=== PATIENT | female | born 1970 | race Caucasian/White ===

== ENCOUNTER 2020-05-10 11:34 | Outpatient (CLI) | payer OTHER, SELFPAY | END 2020-05-10 11:35 | disposition home or self-care (01) | LOC: ANHLAB 11:36 | PROVIDERS: PCP Family Medicine; Visit Provider Internal Medicine Critical Care Medicine | DX: G47.00 Insomnia, unspecified (principal) | CPT/HCPCS: 36415; 82728 ==

== ENCOUNTER 2020-05-16 00:35 | Outpatient (CLI) | payer OTHER, SELFPAY ==
[2020-05-16 17:34] LABS: SARS-CoV-2 RNA PCR Negative
== END 2020-05-16 00:36 | disposition home or self-care (01) ==
LOC: ANHCOVIDDT 00:36
PROVIDERS: PCP Family Medicine; Visit Provider Internal Medicine Critical Care Medicine
DX: Z20.822 Contact with and (suspected) exposure to COVID-19 (principal)
CPT/HCPCS: C9803; U0003; U0005

== ENCOUNTER 2020-05-18 08:40 | Outpatient (CLI) | payer OTHER, SELFPAY ==
--- NOTE | 2020-06-10 17:37 | WPDSLEEPSTUD ---
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 At this point, she started having difficulty sleeping when she got home from her overnight babysitter. If she had to work the following night, she had significant anxiety which made it even more difficult for her to sleep during the day. She is now using Ramelteon 8 mg to initiate sleep; has tried diphenhydramine and Unisom; she is on olanzapine / Zyprexa which is helping calm her down but this is not helping to get her to sleep. She is tired in the day from lack of good sleep. She quit working in March. She goes to bed at 9 p.m., falls asleep between 10 and 11 p.m. She only sleeps a few hours before waking. She estimates getting 3-4 hours of sleep, with frequent episodes of waking. Her legs do not bother her at night. She has B6 deficiency and takes replacement. She does not have typical sleep apnea symptoms such as snoring or gasping for breath at night. She has a dry mouth which has been long standing which she attributes to her medications. She currently does not drink any caffeine. She drank 2 large Mountain Dew sodas overnight when she was still working nights. She does not snore. She does not wake feeling refreshed. She is tired in the day, does not nap. She has occasional dreams, rare nightmares. She has hot flashes at night and in the day. These occur a few times daily. She drinks alcohol rarely. At most, she has nocturia once at night. She does not have inappropriate episodes of sleep, sleep paralysis, vivid dreams on falling asleep or waking, does not have muscle weakness with strong emotion. She does not have dreams frequently. Her sleep was normal before 2 years ago. [facility] Past Medical History Medical History (Updated 06/10/20 @ 18:48 by Liz Terry MD) Abnormal uterine bleeding Anxiety Back pain BMI 26.0-26.9,adult Depression Tobacco abuse Surgical History Surgical History (Updated 05/13/20 @ 14:30 by Liz Terry MD) History of abdominoplasty History of back surgery Hx of appendectomy Hx of cholecystectomy Hx of tonsillectomy Hx of tubal ligation Family History Family History Grandparent Family history of lymphoma Social History Social History Smoking status: Current every day smoker Tobacco type: cigarettes Second hand tobacco smoke exposure: No Alcohol intake: current Drinks per week: 1 Substance use: never Gender identity (if verbalized by the patient): Female Spiritual care concerns: No Agree to blood products: Yes Medications Home Medications Medication Instructions Recorded Confirmed Type olanzapine 10 mg tablet 10 mg PO DAILY 11/12/19 03/07/20 History albuterol sulfate 90 mcg/actuation 1 inh INHALATION Q6H PRN #18 gm 04/22/20 Rx aerosol inhaler ramelteon 8 mg tablet 8 mg PO ONCE 05/10/20 History hydrocodone 10 mg-acetaminophen 1 tablet PO Q5H PRN #150 tablet 05/23/20 Rx 325 mg tablet tizanidine 4 mg tablet 4 mg PO TID PRN #90 tablet 05/30/20 Rx Sleep Procedure This test was performed using the [employer] multiple channel system including EOG, EEG, submental EMG, EKG, nasal and oral airflow using thermistors and nasal pressure sensors, chest and abdominal belts for body position data, and pulse oximetry. Video monitoring was also performed. The study was scored using CMS guidelines. Sleep Architecture The recording time is 528.9 minutes. Sleep time is 348 minutes. Sleep efficiency is
[2020-06-13 22:10] VITALS: BMI 26.4
== END 2020-05-18 08:41 | disposition home or self-care (01) ==
LOC: ANHCSM 08:42
PROVIDERS: PCP Family Medicine; Visit Provider Internal Medicine Critical Care Medicine
DX: R06.83 Snoring (principal); G47.00 Insomnia, unspecified
CPT/HCPCS: 95810

== ENCOUNTER 2022-02-16 09:54 | Outpatient (CLI) | payer BC, SELFPAY ==
[2022-02-16 10:19] LABS: Basophils Absolute Auto 0.1 K/mm3 (0.0-0.1); Eosinophils Absolute Auto 0.7 K/mm3 (0-0.3); Eosinophils Percent Auto 10.7 % (0-4.4); Hematocrit 42.1 % (37.0-47.0); Hemoglobin 14.2 g/dL (12.0-15.0); Immature Granulocyte Absolute 0.02 K/mm3 (0.00-0.031); Immature Granulocyte Percent A 0.3 % (0-0.5); Lymphocytes Absolute Auto 2.39 K/mm3 (0.9-3.2); Lymphocytes Percent Auto 39.2 % (18.3-44.2); Mean Corpuscular HGB Conc 33.7 g/dl (32-36); Mean Corpuscular Hemoglobin 32.2 pg (26-34); Mean Corpuscular Volume 95.5 fl (80-100); Mean Platelet Volume 9.8 fl (7.4-10.4); Monocytes Absolute Auto 0.3 K/mm3 (0.1-0.6); Monocytes Percent Auto 5.4 % (2.6-8.5); Neutrophils Absolute Auto 2.6 K/mm3 (1.3-6.7); Neutrophils Percent Auto 43.4 % (45.5-73.1); Platelet Count Result 239 k/mm3 (150-375); Red Blood Count 4.41 M/mm3 (4.2-5.4); Red Cell Distribution Width 13.6 % (11.5-14.5); White Blood Count 6.1 K/mm3 (4.5-10.0)
[2022-02-16 10:51] LABS: Vitamin D 25 Hydroxy 39.1 ng/mL
[2022-02-16 11:03] LABS: Iron 175 ug/dL (37-170)
[2022-02-16 11:04] LABS: Alanine Aminotransferase 25 U/L (6-35); Albumin Level 4.6 g/dL (3.5-5.1); Alkaline Phosphatase 112 U/L (38-126); Anion Gap 14 mmol/L (8-16); Aspartate Amino Transferase 26 U/L (14-36); Bilirubin,Total 0.6 mg/dL (0.2-1.3); Blood Urea Nitrogen 15 mg/dL (7-17); Calcium 9.2 mg/dL (8.4-10.2); Carbon Dioxide 26 mmol/L (22-30); Chloride 103 mmol/L (98-107); Cholesterol 222 mg/dL (0-200); Estimated Glomerular Filt Rate > 60; Glucose 136 mg/dL (65-110); HDL Direct 52 mg/dL; Sodium 143 mmol/L (137-145); Triglycerides 157 mg/dL (<150)
[2022-02-16 11:13] LABS: Percent Iron Saturation 66 % (20-50)
[2022-02-16 11:15] LABS: LDL Cholesterol Direct 134 mg/dL
[2022-02-16 11:33] LABS: Thyroid Stimulating Hormone 0.952 uIU/mL (0.465-4.680)
[2022-02-16 12:44] LABS: Vitamin B12 > 1000.0 pg/mL (239-931)
[2022-02-20 13:11] LABS: Vitamin B6 7.4 ng/mL (2.1-21.7)
[2022-02-22 04:41] LABS: Vitamin B1 11 nmol/L (8-30)
== END 2022-02-16 09:55 | disposition home or self-care (01) ==
LOC: ANHLAB 09:56
PROVIDERS: PCP Family Medicine; Visit Provider Family Medicine
DX: E51.9 Thiamine deficiency, unspecified (principal); E55.9 Vitamin D deficiency, unspecified; Z13.220 Encounter for screening for lipoid disorders; E53.1 Pyridoxine deficiency; E53.8 Deficiency of other specified B group vitamins; E61.1 Iron deficiency; F41.9 Anxiety disorder, unspecified
CPT/HCPCS: 36415; 80048; 80061; 80076; 82306; 82607; 82728; 83540; 83550; 84207; 84425; 84443; 85025

== ENCOUNTER 2022-03-16 10:21 | Outpatient (CLI) | payer BC, SELFPAY ==
[2022-03-16 10:48] LABS: Cholesterol 206 mg/dL (0-200); Glucose 103 mg/dL (65-110); HDL Direct 46 mg/dL; Triglycerides 128 mg/dL (<150)
[2022-03-16 10:59] LABS: LDL Cholesterol Direct 118 mg/dL
== END 2022-03-16 10:22 | disposition home or self-care (01) ==
LOC: ANHLAB 10:22
PROVIDERS: PCP Family Medicine; Visit Provider Family Medicine
DX: E78.2 Mixed hyperlipidemia (principal); R73.09 Other abnormal glucose
CPT/HCPCS: 36415; 80061; 82947

== ENCOUNTER 2022-05-13 15:32 | Emergency (ER) | payer BC, SELFPAY ==
--- NOTE | 2022-05-13 15:33 | ED.URI ---
HPI - URI/Sore Throat General Chief Complaint: Upper Respiratory Infection Stated Complaint: needs a covid test Time Seen by Provider: 05/13/22 15:43 Source: patient and RN notes reviewed Mode of arrival: ambulatory Limitations: no limitations History of Present Illness HPI Narrative: 51-year-old female presents concern for exposure to COVID. Reports her tested positive for COVID on Saturday, she took a negative test on Saturday. She reports she had a slight fever of 100.1, some cough, and some nasal congestion. She reports taking Sudafed PE for her symptoms MD elicited complaint: nasal congestion Related Data Allergies Allergy/AdvReac Type Severity Reaction Status Date / Time gabapentin Allergy Unknown Swelling Verified 05/04/22 07:57 pregabalin Allergy Unknown Swelling Verified 05/04/22 07:57 tetracycline Allergy Unknown Rash Verified 05/04/22 07:57 Review of Systems Review of Systems: CONSTITUTIONAL: Denies malaise, chills, sweats. Reports low-grade fever. EYES: Denies visual changes, redness, or discharge. ENT: Reports rhinorrhea, congestion. Denies sinus pain, otalgia and sore throat. CARDIOVASCULAR: Denies chest pain, palpitations, or edema. RESPIRATORY: Reports cough. Denies dyspnea. GASTROINTESTINAL: Denies abdominal pain, nausea, vomiting, diarrhea SKIN: Denies rash or itching. MUSCULOSKELETAL: Denies myalgia. NEUROLOGIC: Denies headache. All systems reviewed & are unremarkable except as noted in HPI and below PMFSH Past Medical History Medical History Abnormal uterine bleeding Anxiety Back pain BMI 26.0-26.9,adult BMI 28.0-28.9,adult Depression Elevated blood-pressure reading without diagnosis of hypertension Elevated glucose NSAID long-term use Restless leg syndrome Tobacco abuse Surgical History Surgical History History of abdominoplasty History of back surgery Hx of appendectomy Hx of cholecystectomy Hx of tonsillectomy Hx of tubal ligation Family History Family History Grandparent Family history of lymphoma Social History Social History Smoking status: Current some day smoker (2 cigs since last visit) Tobacco type: cigarettes Second hand tobacco smoke exposure: No Alcohol intake: current Drinks per week: 1 Substance use: never Gender identity (if verbalized by the patient): Female Spiritual care concerns: No Agree to blood products: Yes Comments At time of signature, agree with nursing past medical, surgical, social and family history. There is no relevant family history pertinent to the presenting complaint Exam Narrative: GENERAL: Well-appearing, well-nourished, and in no acute distress. HEAD: Normocephalic EYES: PERRLA, conjunctivae clear ENT: Nares clear, turbinates edematous and erythematous, clear discharge. Mucous membranes moist. TM pearly starr with dull light reflex bilaterally; no tragal tenderness. Oropharynx not erythematous without lesions. Tonsils not enlarged and without exudate, no drooling, no hoarseness, no trismus, uvula midline. NECK: Supple. No lymphadenopathy CHEST: Clear to auscultation, breath sounds equal. No wheezing, rhonchi, rales, or stridor. No respiratory distress, speaks in full sentences. HEART: Regular rate and rhythm. No murmur heard. SKIN: Warm, dry, no rash. NEURO: Alert and oriented x3. PSYCH: Normal mood and affect Course Course Emergency Course: Patient is aware of diagnosis, understands and agrees to treatment plan. Anticipatory guidance given. Patient agrees to follow-up as directed and is aware of reasons to seek care at the emergency department. Portions of this record may have been created with voice recognition software Level of Care: Express Care Visit Vital Signs Vital signs: Vital Signs Temperature 98.1 F 05/13
[2022-05-13 15:36] VITALS: BP 142/85; PULSE 99; RESP 16; TEMP 36.7; O2SAT 96
== END 2022-05-13 16:08 | disposition home or self-care (01) ==
PROVIDERS: Emergency Provider Nurse Practitioner; PCP Family Medicine
DX: U07.1 COVID-19 (principal); Z72.0 Tobacco use; G25.81 Restless legs syndrome
CPT/HCPCS: 87426; 99213; C9803; G0463

== ENCOUNTER 2022-07-25 09:07 | Emergency (ER) | payer BC, SELFPAY ==
--- NOTE | ~2022-07-25 | XR_ITS ---
Clinical Indication: Hypoxia PA and lateral views of the chest: Comparison: 08/22/2018 Findings: The lungs are clear, without evidence of focal consolidation or pleural effusion. Cardiome diastinal silhouette is within normal limits. Bones and soft tissues are unremarkable. Impression: Normal chest. Reviewed, dictated and finalized at [facility]. Impression: Normal chest.
[2022-07-25 09:14] VITALS: BP 144/80; PULSE 116; RESP 16; TEMP 37; O2SAT 91
--- NOTE | 2022-07-25 09:51 | ED.URI ---
HPI - URI/Sore Throat General Chief Complaint: Upper Respiratory Infection Stated Complaint: bronchitis/sinus Time Seen by Provider: 07/25/22 09:50 Source: patient, RN notes reviewed and old records reviewed Mode of arrival: ambulatory Limitations: no limitations History of Present Illness HPI Narrative: 51 year old female [facility] complaints of cough, headache, sinus pressure with fever up to 101.6F with symptoms for past 3 days. 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 Patient has long history of tobacco abuse. MD elicited complaint: fever, cough, rhinorrhea and nasal congestion Pertinent past history: pneumonia and other (bronchitis, tobacco abuse) Onset (ago): day(s) (3) Pain scale (0-10): 4 Description of mucous: yellow Able to tolerate fluids by mouth: Yes Treatments prior to arrival: ibuprofen and other (cough medication) Related Data Home Medications Medication Instructions Recorded Confirmed trazodone 50 mg tablet 50 mg PO QHS PRN Sleep 07/25/22 07/25/22 Allergies Allergy/AdvReac Type Severity Reaction Status Date / Time gabapentin Allergy Unknown Swelling Verified 07/25/22 09:23 pregabalin Allergy Unknown Swelling Verified 07/25/22 09:23 tetracycline Allergy Unknown Rash Verified 07/25/22 09:23 Review of Systems Review of Systems: CONSTITUTIONAL:Reports malaise, chills, sweats, or fever. EYES: Denies visual changes, redness, or discharge ENT: Reports rhinorrhea, congestion, sinus pain,no otalgia or sore throat. CARDIOVASCULAR: Denies chest pain, palpitations, or edema. RESPIRATORY: Reports cough.? Reports some dyspnea with exertion, cough productive yellow drainage. GASTROINTESTINAL: Denies abdominal pain, nausea, vomiting, diarrhea SKIN: Denies rash or itching. MUSCULOSKELETAL: Denies myalgia. NEUROLOGIC:reports headache. All systems reviewed & are unremarkable except as noted in HPI and below PMFSH Past Medical History Medical History Abnormal uterine bleeding Anxiety Back pain BMI 26.0-26.9,adult BMI 28.0-28.9,adult Depression Elevated blood-pressure reading without diagnosis of hypertension Elevated glucose NSAID long-term use Restless leg syndrome Tobacco abuse Surgical History Surgical History History of abdominoplasty History of back surgery Hx of appendectomy Hx of cholecystectomy Hx of tonsillectomy Hx of tubal ligation Family History Family History Grandparent Family history of lymphoma Social History Social History (Updated 07/26/22 @ 08:35 by Leticia Espino NP) Smoking status: Current every day smoker Tobacco type: cigarettes Second hand tobacco smoke exposure: No Alcohol intake: current Drinks per week: 1 Substance use: current Substance use type: opiates Other substance usage details: for chronic back pain Gender identity (if verbalized by the patient): Female Spiritual care concerns: No Agree to blood products: Yes Comments At time of signature, agree with nursing past medical, surgical, social and family history. There is no relevant family history pertinent to the presenting complaint Exam Narrative: GENERAL: Well-appearing, well-nourished, and in no acute distress. HEAD: Normocephalic EYES: PERRLA, conjunctivae clear ENT: Nares clear, turbinates edematous and erythematous, yellow discharge. Mucous membranes moist. TM pearly starr with dull light reflex bilaterally; no tragal tenderness. Oropharynx erythematous without lesions. Tonsils not present and throat without exudate, no drooling, no
== END 2022-07-25 10:15 | disposition home or self-care (01) ==
PROVIDERS: Emergency Provider Registered Nurse; PCP Family Medicine
DX: J40 Bronchitis, not specified as acute or chronic (principal); F17.210 Nicotine dependence, cigarettes, uncomplicated; F32.A Depression, unspecified; F41.9 Anxiety disorder, unspecified; G25.81 Restless legs syndrome
CPT/HCPCS: 71046; 99213; G0463

== ENCOUNTER 2022-07-30 13:50 | Emergency (ER) | payer BC, SELFPAY ==
--- NOTE | 2022-07-30 14:09 | ED.URI ---
HPI - URI/Sore Throat General Chief Complaint: Upper Respiratory Infection Stated Complaint: Cough Time Seen by Provider: 07/30/22 14:10 Source: patient and RN notes reviewed History of Present Illness HPI Narrative: Patient is a 51-year-old female who presents to urgent care with complaints of shortness of breath and cough. Patient was seen at our facility last week on Saturday and was given azithromycin and a Medrol Dosepak. Patient states that she initially had a fever which then subsided since the antibiotic. Patient denies any lung disease, COPD, asthma or recurrent bronchitis/pneumonia. Patient's chest x-ray last week was normal. Denies any fever, nausea, vomiting. Denies any chest pain. Patient has not followed up with her doctor. No other acute complaints. Patient aware of the plan of care. Some parts of this dictation were generated by voice recognition software and may contain typographical and/or grammatical inaccuracies. Related Data Home Medications Medication Instructions Recorded Confirmed trazodone 50 mg tablet 50 mg PO QHS PRN Sleep 07/25/22 07/30/22 Allergies Allergy/AdvReac Type Severity Reaction Status Date / Time gabapentin Allergy Unknown Swelling Verified 07/30/22 14:20 pregabalin Allergy Unknown Swelling Verified 07/30/22 14:20 tetracycline Allergy Unknown Rash Verified 07/30/22 14:20 Review of Systems Review of Systems: CONSTITUTIONAL: Denies fever, chills, or sweats. EYES: Denies visual changes, redness, or discharge. ENT: Denies rhinorrhea, congestion, sore throat, or otalgia. CARDIOVASCULAR: Denies chest pain, palpitations, or edema. RESPIRATORY: Reports of cough and shortness of breath GASTROINTESTINAL: Denies abdominal pain, nausea, vomiting, or diarrhea. GENITOURINARY: Denies dysuria or hematuria. SKIN: Denies rash or itching. MUSCULOSKELETAL: Denies back pain, joint pain, or myalgia. NEUROLOGIC: Denies headache, numbness, or weakness. All other systems reviewed are negative, except as documented in HPI. [facility] Past Medical History Medical History Abnormal uterine bleeding Anxiety Back pain BMI 26.0-26.9,adult BMI 28.0-28.9,adult Depression Elevated blood-pressure reading without diagnosis of hypertension Elevated glucose NSAID long-term use Restless leg syndrome Tobacco abuse Surgical History Surgical History History of abdominoplasty History of back surgery Hx of appendectomy Hx of cholecystectomy Hx of tonsillectomy Hx of tubal ligation Family History Family History Grandparent Family history of lymphoma Social History Social History (Updated 07/26/22 @ 08:35 by Leticia Espino NP) Smoking status: Current every day smoker Tobacco type: cigarettes Second hand tobacco smoke exposure: No Alcohol intake: current Drinks per week: 1 Substance use: current Substance use type: opiates Other substance usage details: for chronic back pain Gender identity (if verbalized by the patient): Female Spiritual care concerns: No Agree to blood products: Yes Comments At the time of my signature, I reviewed and agree with the nursing past medical, surgical, social, and family history. There is no relevant family history pertinent to the patient complaint. Exam Narrative: GENERAL: This is a well-nourished, well-developed patient, in no apparent distress. HEAD: normocephalic, atraumatic. EYES: PERRL. Sclera clear/white. Vision is grossly intact. EARS: External ears normal, auditory canals clear and without drainage, TMs normal without perforation. Hearing grossly intact. NOSE: External nose normal with no obvious nasal discharge, nares without redness, no rhinorrhea. THROAT: Mucous membranes moist, posterior pharynx clear. Mild postnasal drainage NECK: Neck supple, non-tender without lym
[2022-07-30 14:15] VITALS: BP 138/84; PULSE 84; RESP 20; TEMP 36.7; O2SAT 94
[2022-07-30 14:23] VITALS: BP 138/84; PULSE 84; RESP 20; TEMP 36.7; O2SAT 94
[2022-07-30] MEDS: methylPREDNISolone ACETATE 80 MG/ML VIAL IM (14:49)
[2022-07-30] MEDS: IPRATROPIUM BR 0.02% INH SOLN 0.5 MG/2.5 ML VIAL INHALATION (14:50)
[2022-07-30] MEDS: ALBUTEROL SULFATE NEB 2.5 MG/3 ML INH INHALATION (14:50)
== END 2022-07-30 15:36 | disposition home or self-care (01) ==
PROVIDERS: Emergency Provider Nurse Practitioner Family; PCP Family Medicine
DX: J40 Bronchitis, not specified as acute or chronic (principal); F17.210 Nicotine dependence, cigarettes, uncomplicated; G25.81 Restless legs syndrome; F41.9 Anxiety disorder, unspecified; F32.A Depression, unspecified
CPT/HCPCS: 96372; 99213; G0463; J1040

== ENCOUNTER 2023-05-03 07:25 | Outpatient (CLI) | payer BC, SELFPAY ==
[2023-05-03 07:45] LABS: Hemoglobin 13.1 g/dL (12.0-15.0); Mean Corpuscular Hemoglobin 30.7 pg (26-34); Mean Platelet Volume 9.9 fl (7.4-10.4); Platelet Count Result 228 k/mm3 (150-375); Red Blood Count 4.27 M/mm3 (4.2-5.4); Red Cell Distribution Width 13.2 % (11.5-14.5); White Blood Count 5.8 K/mm3 (4.5-10.0)
[2023-05-03 08:32] LABS: Erythrocyte Sedimentation Rate 22 mm/hr (0-20)
[2023-05-03 09:08] LABS: Iron 103 ug/dL (37-170)
[2023-05-03 09:16] LABS: Alanine Aminotransferase 25 U/L (6-35); Alkaline Phosphatase 98 U/L (38-126); Anion Gap 7 mmol/L (8-16); Aspartate Amino Transferase 31 U/L (14-36); Bilirubin,Total 0.7 mg/dL (0.2-1.3); Blood Urea Nitrogen 16 mg/dL (7-17); Calcium 9.2 mg/dL (8.4-10.2); Carbon Dioxide 28 mmol/L (22-30); Chloride 105 mmol/L (98-107); Cholesterol 188 mg/dL (0-200); Estimated Glomerular Filt Rate > 60; Glucose 110 mg/dL (65-110); HDL Direct 42 mg/dL; Potassium 4.1 mmol/L (3.4-5.0); Sodium 140 mmol/L (137-145); Triglycerides 118 mg/dL (<150)
[2023-05-03 09:17] LABS: Percent Iron Saturation 35 % (20-50)
[2023-05-03 09:27] LABS: LDL Cholesterol Direct 114 mg/dL
[2023-05-03 10:07] LABS: Vitamin D 25 Hydroxy 22.2 ng/mL
[2023-05-07 11:00] LABS: Vitamin B6 53.9 ng/mL (2.1-21.7)
[2023-05-09 19:45] LABS: Estrogen 98 pg/mL
[2023-05-10 05:15] LABS: Vitamin B1 9 nmol/L (8-30)
== END 2023-05-03 07:26 | disposition home or self-care (01) ==
LOC: ANHLAB 07:26
PROVIDERS: PCP Family Medicine; Visit Provider Family Medicine
DX: E55.9 Vitamin D deficiency, unspecified (principal); R23.2 Flushing; E51.9 Thiamine deficiency, unspecified; E53.8 Deficiency of other specified B group vitamins; G63 Polyneuropathy in diseases classified elsewhere; Z13.220 Encounter for screening for lipoid disorders; E53.1 Pyridoxine deficiency; E61.1 Iron deficiency; R03.0 Elevated blood-pressure reading, without diagnosis of hypertension
CPT/HCPCS: 36415; 80048; 80061; 80076; 82306; 82607; 82672; 83001; 83540; 83550; 84207; 84425; 84443; 85027; 85652

== ENCOUNTER → 2023-11-19 12:35 | Outpatient (CLI) | payer BC, SELFPAY ==
--- NOTE | ~2023-11-19 | XR_ITS ---
Clinical Indication: Pneumonia PA and lateral views of the chest: Comparison: 07/25/2022 Findings: Left upper lobe consolidation is compatible with pneumonia. Cardiomediastinal silhouette i s within normal limits. Bones and soft tissues are unremarkable. Impression: Left upper lobe pneumonia. Follow-up to radiographic resolution recommended. Reviewed, dictated and finalized at [facility]. Impression: Left upper lobe pneumonia. Follow-up to radiographic resolution recommended.
== END ==
LOC: EXPBRAD 12:37
PROVIDERS: PCP Family Medicine; Visit Provider Family Medicine
DX: J18.9 Pneumonia, unspecified organism (principal)
CPT/HCPCS: 71046

== ENCOUNTER 2024-01-27 14:44 | Emergency (ER) | payer BC, SELFPAY ==
--- NOTE | ~2024-01-27 | XR_ITS ---
EXAMINATION: XR chest 2V DATE: 01/27/2024 15:32 INDICATION: Cough. Shortness of breath. TECHNIQUE: Frontal and lateral views of the chest were obtained. COMPARISON: Chest 2 views 11/19/23, CT abdomen and pelvis 04/18/2019 FINDINGS: There is mild atelectasis in lingula. There are persistent airspace opacities in left upper lobe. No pleural effusion or pneumothorax. The heart size is normal. There is mild chronic anterior wedging of multiple vertebral bodies. Surgical clips in the right upper quadrant are likely from chol ecystectomy. IMPRESSION: 1. Persistent airspace opacities in left upper lobe, which may be pneumonia or malignancy. Noncontras t chest CT is recommended. Reviewed, dictated and finalized at location A. IMPRESSION: 1. Persistent airspace opacities in left upper lobe, which may be pneumonia or malignancy. Noncontrast chest CT is recommended.
[2024-01-27 14:50] VITALS: BP 140/76; PULSE 107; RESP 18; TEMP 37.4; O2SAT 95
[2024-01-27 15:01] VITALS: BP 140/76; PULSE 107; RESP 18; TEMP 37.4; O2SAT 95
--- NOTE | 2024-01-27 15:11 | ED.URI ---
HPI - URI/Sore Throat General Chief Complaint: Upper Respiratory Infection Stated Complaint: cough/cold Time Seen by Provider: 01/27/24 15:10 Source: patient, RN notes reviewed and old records reviewed Mode of arrival: ambulatory Limitations: no limitations History of Present Illness HPI Narrative: 53-year-old female presents to Express Care with complaints of developing cough with congestion, sore throat, shortness of breath, fevers up to 101F, wheezing for the past 3 days. 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 Patient reports that she has done a home COVID test which was negative last night. Patient has history of asthma and reports that she did have pneumonia about 2 months ago and was treated with Rocephin, steroids and oral antibiotic. Patient has been taking Tylenol, using her inhalers/nebulizer and has also taken DayQuil and Mucinex DM for her symptoms.Patient reports that she santoyo noted some productive cough of yellow tinged phlegm. MD elicited complaint: cough Pertinent past history: pneumonia, asthma and other (prior tobacco use) Onset (ago): day(s) (3) Severity: moderate Description of mucous: yellow Able to tolerate fluids by mouth: Yes Treatments prior to arrival: acetaminophen and other (Mucinex, inhaler, DyQuil) Related Data Allergies Allergy/AdvReac Type Severity Reaction Status Date / Time gabapentin Allergy Unknown Swelling Verified 01/27/24 14:47 pregabalin Allergy Unknown Swelling Verified 01/27/24 14:47 tetracycline Allergy Unknown Rash Verified 01/27/24 14:47 Review of Systems Review of Systems: CONSTITUTIONAL Reports malaise, chills, sweats, or fever. EYES: Denies visual changes, redness, or discharge. ENT: Reports rhinorrhea, congestion, sinus pain,no otalgia and positive sore throat. CARDIOVASCULAR: Denies chest pain, palpitations, or edema. RESPIRATORY: Reports productive cough.?Reports some dyspnea. GASTROINTESTINAL: Denies abdominal pain, nausea, vomiting, diarrhea SKIN: Denies rash or itching. MUSCULOSKELETAL: Denies myalgia. NEUROLOGIC: Denies headache. All systems reviewed & are unremarkable except as noted in HPI and below PMFSH Past Medical History Medical History (Updated 01/28/24 @ 16:19 by Leticia Espino NP) Abnormal uterine bleeding Anxiety Back pain Depression Elevated blood-pressure reading without diagnosis of hypertension Elevated glucose Hot flashes NSAID long-term use Pneumonia Restless leg syndrome Screen for colon cancer Screening mammogram for high-risk patient Tobacco abuse Wheezy bronchitis Surgical History Surgical History History of abdominoplasty History of back surgery Hx of appendectomy Hx of cholecystectomy Hx of tonsillectomy Hx of tubal ligation Family History Family History Grandparent Family history of lymphoma Father , cancer Cancer Mother No problems noted. Social History Social History Smoking status: Former smoker Tobacco type: cigarettes Second hand tobacco smoke exposure: No Alcohol intake: current Drinks per week: 1 Substance use: current Substance use type: opiates Other substance usage details: for chronic back pain Do You Feel Safe in your Home?: Yes Lack of Transportation: No Lack of Food: Never True Current Housing: I Have Housing Concerned About Future Housing: No Difficulty Paying Gas/Electric Bills: No Difficulty Paying for Meds: No Currently Unemployed: No Education: Bachelor's Degree Difficulty w/ Childcare or Family Care: No Living arrangements: with family Occupation/Education: occupation 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 There is no relevant family history pertinent to the presenting complaint Exam Narrative: GENERAL: Well-appearing, well-nourished, and in no acute distress. HEAD: Normocephalic EYES: PERRLA, conjunctivae clear ENT: Nares clear, turbinates edematous and erythematous, clear discharge. Mucous membranes moist. TM pearly starr with dull light reflex bilaterally; no tragal tenderness. Oropharynx erythematous without lesions. Tonsils not present, and throat without exudate, no drooling, no hoarseness, no trismus, uvula midline.some post nasal drainage NECK: Supple. No lymphadenopathy CHEST: Scattered wheezing on auscultation, breath sounds equal. positive for wheezing, no rhonchi, rales, or stridor. No respiratory distress, speaks in full sentences.productive coughSAO2 95% on room air HEART: Regular rate and rhythm. No murmur heard. SKIN: Warm, dry, no rash. NEURO: Alert and oriented x3. PSYCH: Normal mood and affect Course Course Emergency Course: Patient is aware of diagnosis, understands and agrees to treatment plan.? Anticipatory guidance given.? Patient agrees to follow-up as directed and is aware of reasons to seek care at the emergency department. Portions of this record may have been created with voice recognition software Level of Care: Express Care Visit Vital Signs Vital signs: Vital Signs Temperature 37.4 C 01/27/24 14:50 Pulse Rate 107 H 01/27/24 14:50 Respiratory Rate 18 01/27/24 14:50 Blood Pressure 140/76 01/27/24 14:50 Pulse Oximetry 95 01/27/24 14:50 Oxygen Delivery Room Air 01/27/24 14:50 Temperature 37.4 C 01/27/24 15:01 Pulse Rate 107 H 01/27/24 15:01 Respiratory Rate 18 01/27/24 15:01 Blood Pressure 140/76 01/27/24 15:01 Pulse Oximetry 95 01/27/24 15:01 Oxygen Delivery Room Air 01/27/24 15:01 Reviewed MDM - URI/Sore Throat MDM Narrative Medical decision making narrative: Differential diagnosis considered: Gardiner virus, strep pharyngitis, allergic rhinitis, upper respiratory tract infection, sinusitis, rhinosinusitis, nasopharyngitis. viral pharyngitis, otitis media, otitis externa, pneumonia, bronchitis, viral cough syndrome, viral syndrome, and influenza.? Exam findings show no acute concerns or changes; patient is non-toxic appearing and is in no distress.? Patient is appropriate for outpatient treatment and follow-up. Differential Diagnosis Differential diagnosis: Likely upper respiratory infection, sinusitis, viral infection, bronchitis and other (pneumonia, exacerbation of asthma) Medical Records Attestation: I reviewed the patient's medical records. Lab Data Attestation: I reviewed the patient's lab results. Imaging Data Attestation: I personally reviewed and interpreted this imaging study as follows: My impression: persistent airspace opacities in left upper lobe which maybe pneumonia or malignancy, recommend CT chest Radiologist's impression: [facility] [address] [place] [facility] [address] XRay Report Signed Patient: Rowena Clark : 1970 MR#: [id number] Age: 53 Acct:[id number] Loc: EXPBE ADM Date: 01/27/24Attending Dr: Ordering Physician: Leticia Espino APRN Date of Service: 01/27/24 Procedure(s): XR chest 2V Accession Number(s): [id number] cc: Leticia Espino APRN; Torsten Wiley MD~ EXAMINATION: XR chest 2V DATE: 01/27/2024 15:32 INDICATION: Cough. Shortness of breath. TECHNIQUE: Frontal and lateral views of the chest were obtained. COMPARISON: Chest 2 views 11/19/23, CT abdomen and pelvis 04/18/2019 FINDINGS: There is mild atelectasis in lingula. There are persistent airspace opacities in left upper lobe. No pleural effusion or pneumothorax. The heart size is normal. There is mild chronic anterior wedging of multiple vertebral bodies. Surgical clips in the right upper quadrant are likely from cholecystectomy. IMPRESSION: 1. Persistent airspace opacities in left upper lobe, which may be pneumonia or malignancy. Noncontrast chest CT is recommended. Reviewed, dictated and finalized at location A. Dictated By: Vaughn Johnson MD 01/27/24 1544 Signed By: <Electronically signed by Vaughn Johnson MD in OV> Critical Care Time Critical Care Time Critical Care Time: No Discharge Plan Discharge Clinical Impression: Pneumonia Patient Disposition: Home, Self-Care Condition: Stable Instructions: Antibiotic Form, Pneumonia (ED) Additional Instructions: Increase fluids especially juices and water Kvuy-eqq-kuzfhan cough and cold medicine of your choice for your symptoms Tylenol or Ibuprofen for any fever or pain Cough tablets as directed for cough--do not bite, chew or suck on--swallow whole Continue your inhaler/nebulizer as directed Steroids as directed--take with food heat to the face 20-30 minutes 4-6 times a day for pain Salt water gargles, throat lozenges or throat sprays as desired Antibiotic as directed--finished the medication If your symptoms persist, change or worsen significantly before you can contact your personal physician then please, without delay, go to the emergency department for further evaluation. Follow-up with PCP in 7-10 days or sooner Follow up with PCP soon in regards to your blood pressure which is elevated above threshold for referral. Blood pressure above 120/80 may indicate pre-hypertension. 140/76 Prescriptions: New levofloxacin 750 mg tablet 750 mg PO DAILY Qty: 7 0RF prednisone 20 mg tablet 20 mg PO BID Qty: 10 0RF benzonatate 200 mg capsule 200 mg PO TID PRN (Reason: cough) Qty: 20 0RF No Action albuterol sulfate 2.5 mg /3 mL (0.083 %) solution for nebulization 2.5 mg inhalation Q6H Qty: 75 1RF tizanidine 4 mg tablet 4 mg PO TID PRN (Reason: muscle spasticity) Qty: 90 2RF trazodone 150 mg tablet See Rx Instructions .ROUTE .COMPLEX Qty: 90 0RF Dose Instruction: TAKE ONE (1) TABLET ORALLY EVERY DAY AT BEDTIME Rx Instructions: TAKE ONE (1) TABLET ORALLY EVERY DAY AT BEDTIME albuterol sulfate 90 mcg/actuation HFA aerosol inhaler See Rx Instructions .ROUTE .COMPLEX Qty: 8.5 1RF Dose Instruction: TAKE 1 PUFF BY MOUTH EVERY SIX (6) HOURS NEEDED FOR SHORTNESS OF BREATH OR WHEEZING Rx Instructions: TAKE 1 PUFF BY MOUTH EVERY SIX (6) HOURS NEEDED FOR SHORTNESS OF BREATH OR WHEEZING morphine 15 mg tablet 15 mg PO Q6H PRN (Reason: pain) Qty: 120 0RF Follow-up/Referrals: Torsten Wiley MD [Primary Care Provider] - Time of Disposition: 16:03 Quality Otilio Coma Scale Eyes: Open Verbal: Oriented and Alert Motor: Follows Commands Otilio Coma Total Score: 15
== END 2024-01-27 16:05 | disposition home or self-care (01) ==
PROVIDERS: Emergency Provider Registered Nurse; PCP Family Medicine
DX: J18.9 Pneumonia, unspecified organism (principal); Z87.891 Personal history of nicotine dependence; J45.909 Unspecified asthma, uncomplicated; G25.81 Restless legs syndrome; F32.A Depression, unspecified
CPT/HCPCS: 71046; 99213; G0463

== ENCOUNTER 2024-02-03 09:33 | Outpatient (CLI) | payer BC, SELFPAY ==
--- NOTE | ~2024-02-03 | CT_ITS ---
CT Scan of the Chest without Contrast: Clinical Indication: Other nonspecific abnormal finding of lung field Technique: Contiguous sections were acquired throughout the chest without intravenous contrast. Dose reduction technique was used on this scan by utilizing automated exposure control and iterative recon struction technique. The dose-length product (DLP) was 252.68 mGy-cm. Findings: There is no evidence of any significant mediastinal, hilar or axillary lymphadenopathy. The mediastin al soft tissues appear normal. There is no evidence of pleural or pericardial effusion. The lungs are clear. No pulmonary nodules or infiltrates are noted. Mild to moderate emphysema. Images through the upper abdomen reveal no abnormalities. Impression: Mild to moderate emphysema. Reviewed, dictated and finalized at location . Impression: Mild to moderate emphysema.
== END 2024-02-03 09:34 | disposition home or self-care (01) ==
PROVIDERS: PCP Family Medicine; Visit Provider Family Medicine
DX: J43.9 Emphysema, unspecified (principal); R91.8 Other nonspecific abnormal finding of lung field
CPT/HCPCS: 71250

== ENCOUNTER 2024-04-09 17:16 | Emergency (ER) | payer BC, SELFPAY ==
[2024-04-09 17:19] VITALS: BP 121/94; PULSE 118; RESP 16; TEMP 36.4; O2SAT 96
--- NOTE | 2024-04-09 17:28 | PC.NURSE ---
Pt approached triage desk and stated she is going to go elsewhere to be seen
== END 2024-04-09 17:28 | disposition left against medical advice (07) ==
PROVIDERS: PCP Family Medicine
DX: R11.2 Nausea with vomiting, unspecified (principal)
CPT/HCPCS: 99199

== ENCOUNTER 2024-04-09 18:10 | Emergency (ER) | payer BC, SELFPAY ==
[2024-04-09 18:13] VITALS: BP 143/86; PULSE 123; RESP 19; TEMP 36.7; O2SAT 94
[2024-04-09] MEDS: SODIUM CHLORIDE 0.9% IV 1,000 ML 999 ML IV CONT (18:35)
[2024-04-09] MEDS: ONDANSETRON INJ 4 MG/2 ML VIAL IV PUSH (18:36)
[2024-04-09 19:07] LABS: Alanine Aminotransferase 41 U/L (14-59); Albumin Level 3.3 g/dL (3.4-5.0); Alkaline Phosphatase 124 U/L (46-116); Anion Gap 12 mmol/L (4-12); Aspartate Amino Transferase 32 U/L (15-37); Bilirubin,Total 0.7 mg/dL (0.00-1.00); Blood Urea Nitrogen 16 mg/dL (7-18); Calcium 8.3 mg/dL (8.5-10.1); Carbon Dioxide 26 mmol/L (21-32); Chloride 99 mmol/L (98-108); Estimated CRCL calculation 65 ml/min; Estimated Glomerular Filt Rate > 60; Glucose 134 mg/dL (70-99); Osmolality Calculated 287 mOsm/kg (285-295); Potassium 2.9 mmol/L (3.5-5.1); Sodium 137 mmol/L (136-145); Total Protein 7.1 g/dL (6.4-8.2)
--- NOTE | 2024-04-09 19:11 | ED_ITS ---
HPI - Nausea/Vomiting/Diarrhea General Chief complaint: Nausea/Vomiting/Diarrhea Stated complaint: n/v/d Time Seen by Provider: 04/09/24 18:18 Source: patient Mode of arrival: ambulatory Limitations: no limitations History of Present Illness HPI Narrative: This is a 53-year-old female who presents with nausea vomiting diarrhea with some mild crampy abdominal pain no fever chills no shortness of breath chest pain. MD elicited complaint: nausea, vomiting and diarrhea Related Data Allergies Allergy/AdvReac Type Severity Reaction Status Date / Time gabapentin Allergy Unknown Swelling Verified 04/09/24 18:11 pregabalin Allergy Unknown Swelling Verified 04/09/24 18:11 tetracycline Allergy Unknown Rash Verified 04/09/24 18:11 Review of Systems 2 Review of Systems: All systems reviewed & are unremarkable except as noted in HPI and below PMFSH Past Medical History Medical History Pneumonia Hot flashes Screening mammogram for high-risk patient Screen for colon cancer Wheezy bronchitis Elevated glucose NSAID long-term use Elevated blood-pressure reading without diagnosis of hypertension Restless leg syndrome Depression Tobacco abuse Anxiety Abnormal uterine bleeding Back pain Surgical History Surgical History History of abdominoplasty History of back surgery Hx of tubal ligation Hx of cholecystectomy Hx of appendectomy Hx of tonsillectomy Family History Family History Grandparent Family history of lymphoma Father , cancer Cancer Mother No problems noted. Social History Social History Smoking status: Former smoker Tobacco type: cigarettes Second hand tobacco smoke exposure: No Alcohol intake: current Drinks per week: 1 Substance use: current Substance use type: opiates Other substance usage details: for chronic back pain Do You Feel Safe in your Home?: Yes Lack of Transportation: No Lack of Food: Never True Current Housing: I Have Housing Concerned About Future Housing: No Difficulty Paying Gas/Electric Bills: No Difficulty Paying for Meds: No Currently Unemployed: No Education: Bachelor's Degree Difficulty w/ Childcare or Family Care: No Living arrangements: with family Occupation/Education: occupation 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[employer] Gender identity (if verbalized by the patient): Female Spiritual care concerns: No Agree to blood products: Yes Exam 2 Const: General: healthy appearing and no acute distress Nutritional Appearance: well nourished Orientation/consciousness: patient oriented x3 Limitations: no limitations HENMT: Head: normal to inspection Chest: Chest palpation & inspection: normal inspection of the chest Resp: Effort & Inspection: normal respiratory effort Auscultation: clear to auscultation bilaterally Cardio: Rate: regular rate Rhythm: regular rhythm GI: GI Palp: Yes Soft to palpation Course Course Emergency Course: Patient received IV fluids and IV Zofran and symptoms have CMP performed and reviewed with patient. Vital Signs Vital signs: Vital Signs Temperature 36.7 C 04/09/24 18:13 Pulse Rate 123 H 04/09/24 18:13 Respiratory Rate 19 04/09/24 18:13 Blood Pressure 143/86 H 04/09/24 18:13 Pulse Oximetry 94 04/09/24 18:13 Oxygen Delivery Room Air 04/09/24 18:13 Temperature 36.7 C 04/09/24 18:13 Pulse Rate 123 H 04/09/24 18:13 Respiratory Rate 19 04/09/24 18:13 Blood Pressure 143/86 H 04/09/24 18:13 Pulse Oximetry 94 04/09/24 18:13 Oxygen Delivery Room Air 04/09/24 18:13 MDM - Nausea/Vomiting/Diarrhea Lab Data 04/09/24 18:39 Labs: Lab Results 04/09/24 Range/Units 18:39 Sodium Pending Potassium Pending Chloride Pending Carbon Dioxide Pending Anion Gap Pending BUN Pending Creatinine Pending Estim Creat Clear Calc Pending Estimated GFR Pending Glucose Pending Calculated Osmolality Pending Calcium Pending Total Bilirubin Pending AST Pending ALT Pending Alkaline Phosphatase Pending Total Protein Pending Albumin Pending Critical Care Time Critical Care Time Critical Care Time: No Discharge Plan Discharge Clinical Impression: Gastroenteritis, Dehydration Patient Disposition: Home, Self-Care Condition: Stable Instructions: Antibiotic Form, Dehydration (ED), Clear Liquid Diet (ED), Gastroenteritis (ED) Additional Instructions: advised to take medication as prescribed and follow up with primary within 1 week further evaluation treatment. Patient Language: Belarusian Prescriptions: New ondansetron 4 mg tablet,disintegrating 4 mg PO Q6H PRN (Reason: nausea and vomiting) Qty: 14 0RF No Action trazodone 150 mg tablet See Rx Instructions .ROUTE .COMPLEX Qty: 90 1RF Dose Instruction: TAKE ONE (1) TABLET ORALLY EVERY DAY AT BEDTIME Rx Instructions: TAKE ONE (1) TABLET ORALLY EVERY DAY AT BEDTIME albuterol sulfate 90 mcg/actuation HFA aerosol inhaler See Rx Instructions .ROUTE .COMPLEX Qty: 8.5 5RF Dose Instruction: TAKE 1 PUFF BY MOUTH EVERY SIX (6) HOURS NEEDED FOR SHORTNESS OF BREATH OR WHEEZING Rx Instructions: TAKE 1 PUFF BY MOUTH EVERY SIX (6) HOURS NEEDED FOR SHORTNESS OF BREATH OR WHEEZING tizanidine 4 mg tablet 4 mg PO TID PRN (Reason: muscle spasticity) Qty: 90 2RF morphine 15 mg tablet 15 mg PO Q6H PRN (Reason: pain) Qty: 120 0RF Follow-up/Referrals: Torsten Wiley MD [Primary Care Provider] -
[2024-04-09] MEDS: POTASSIUM BICARBONATE 25 MEQ TABEF 50 MEQ PO (19:23)
[2024-04-09] MEDS: POTASSIUM CHLORIDE 20 MEQ ER TABLET 40 MEQ PO (20:17)
== END 2024-04-09 20:28 | disposition home or self-care (01) ==
PROVIDERS: Emergency Provider Emergency Medicine; PCP Family Medicine
DX: K52.9 Noninfective gastroenteritis and colitis, unspecified (principal); E86.0 Dehydration; Z87.891 Personal history of nicotine dependence; F11.90 Opioid use, unspecified, uncomplicated
CPT/HCPCS: 36415; 80053; 96361; 96374; 99284; A9270; J2405; J7030

== ENCOUNTER 2024-07-10 11:15 | Outpatient (CLI) | payer BC, SELFPAY ==
--- NOTE | ~2024-07-10 | MM_ITS ---
EXAMINATION: MM screening reggie BI w payal HISTORY: Screening TECHNIQUE: Craniocaudal and mediolateral oblique 3-D tomosynthesis images were obtained and synthetic 2-D images were generated. CAD analysis was submitted and interpreted. COMPARISON: 07/21/2018. BREAST PARENCHYMAL COMPOSITION: There are scattered areas of fibroglandular density. FINDINGS: Punctate calcifications detected bilaterally, stable and benign in appearance, dermal in or igin. Stable parenchymal pattern without suspicious microcalcifications, architectural distortion, discrete masses or significant asymmetry. IMPRESSION: 1. No mammographic evidence of malignancy. 2. Recommend routine screening mammography in one year. BI-RADS Category 2: Benign finding(s). Reviewed, dictated and finalized at location A.
== END 2024-07-10 11:16 | disposition home or self-care (01) ==
LOC: MICIMG 11:16
PROVIDERS: PCP Family Medicine; Visit Provider Family Medicine
DX: Z12.31 Encounter for screening mammogram for malignant neoplasm of breast (principal)
CPT/HCPCS: 77063; 77067

== ENCOUNTER 2025-01-25 12:23 | Emergency (ER) | payer BC, SELFPAY ==
[2025-01-25 12:28] VITALS: BP 142/81; PULSE 80; RESP 20; TEMP 36.4; O2SAT 98
[2025-01-25 13:20] LABS: EDINFLUASCREEN Negative (Negative); EDINFLUBSCREEN Negative (Negative)
[2025-01-25 13:20] LABS: EDCOVIDSCREEN Negative (Negative)
--- OUTSIDE RECORDS SUMMARY | 2025-01-25 13:24 | XMS_ITS | Patient Health Record ---
Author Organization [facility] [employer] Address [address] [facility] [address] [place] [address] Care Team Providers Care Matrix Repairer Name Role Phone Aaron Schumacher Unavailable [phone] Reason For Referral No Information Medications Medication SIG (Take, Route, Frequency, Duration) Notes Start Date End Date Status Ramelteon 8 MG Tablet Oral 12/21/2020 Active rOPINIRole HCl 1 MG Tablet Oral 12/21/2020 Active tiZANidine HCl 4 MG Tablet Oral 12/21/2020 Active QUEtiapine Fumarate 25 MG Tablet Oral 12/21/2020 Active HYDROcodone-Acetaminophen 10-325 MG Tablet Oral 12/21/2020 Active Ferrous Sulfate 325 (65 Fe) MG Tablet Oral 12/21/2020 Active ProAir HFA 108 (90 Base) MCG/ACT Aerosol Solution Inhalation 12/21/2020 Act bushra OLANZapine 20 MG Tablet Oral 12/21/2020 Active Social History Social History Additional Details Category Social Info Options Details Migrated Social History Migrated Social History Alcohol Intake: Occasional 02/16/2020,Tobacco Years: Current every day smoker 05/02/2020,Smoking Status: 31 02/16/2020 Plan Of Treatment No Information Medical (General) History Surgical History Surgery Date(Month/Year) Cholecystectomy (26940513) Abdominoplasty (139940737) Removal of ovary(s) (43312) left Ligation of bilateral fallopian tubes (2 [id number]) Reduction mammoplasty (86174460) Appendectomy (27571) Remove tonsils and adenoids (77121) Unlisted px dentalvlr strux (58174) Procedure on back ([id number])
--- OUTSIDE RECORDS SUMMARY | 2025-01-25 13:24 | XMS_ITS | Encounter Summary ---
Author Organization [facility] Address [address] [place] [address] Care Team Providers Care Caustic Room Attendant Name Role Phone Torsten Wiley MD Primary Care Provider Encounter Details Date Type Department Care Team (Late st Contact Info) Description 07/23/2013 [facility]PT Mitesh Santiago MD [address] [place] [address] Social History Tobacco Use Types Packs/Day Years Used Date Smoking Tobacco: Never Assessed Comments Unknown Sex and Gender Information Value Date Recorded Sex Assigned at Not on file Legal Sex Female 3:34 PM CDT Gender Identity Not on file Sexual Orientation Not on file documented as of this encounter Plan of Treatment Not on file documented as of this encounter Visit Diagnoses Not on filedocumented in this encounter Care Teams Caustic Room Attendant Relationship Specialty Start Date End Date Torsten Wiley MD [address] [place] [id number] PCP - General Family Medicine 08/05/13 documented as of this encounter
--- OUTSIDE RECORDS SUMMARY | 2025-01-25 13:24 | XMS_ITS | Clinical Summary ---
Author Organization [facility] Address [address] [place] [address] Care Team Providers Care Ticketing Clerk Name Role Phone Torsten Wiley MD Primary Care Provider Source Comments [facility],non-owned Affiliates and Associated Physician Practices is amultiple site organization consisting of ambulatory clinics and hospital sitesin [place], [place], [place] and [place]. This disclosure is being madepursuant to the Care Everywhere program and may not contain all information available regarding this patient. Last updated 18.[facility] Allergies Active Allergy Reactions Criticality Noted Date Comments Tetracycline 08/24/2013 Medications * Be aware that medications may not be up to date on this document. Alwaysverify current medications with the patient. ALPRAZolam (XANAX) 1 MG tablet Active cyclobenzaprine (FLEXERIL) 10 MG tablet Active lidocaine (LIDODERM) 5 % patch 2 Patches every 7 days. 4 Active amitriptyline (ELAVIL) 25 MG tabletIndicatio ns:Failed back surgical syndrome Take 1 Tab by mouth at bedtime. 30 Tab 5 4 Active oxycodone 10 MG TABSIndications :Moderate to Severe Pain 1-2 tablets by mouth every 4-6 hours as needed for pain during stimulator trial. Indications: Moderate to Severe Pain 50 Tab 0 4 Active fentaNYL 25 MCG/HR, fentaNYL 50 MCG/HR 75 mcg by Apply externally route every 3 days. 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 Not on file Not on file Last Filed Vital Signs Vital Sign Reading Time Taken Comments Blood Pressure 133/97 02/01/2014 10:28 AM CDT Pulse 107 02/01/2014 10:28 AM CDT Temperature 37.1 C (98.8 F) 02/01/2014 10:28 AM CDT Respiratory Rate 16 02/01/2014 10:28 AM CDT Oxygen Saturation 99% 02/01/2014 10:28 AM CDT Inhaled Oxygen Concentration - - Weight 68 kg (150 lb) 02/01/2014 10:28 AM CDT Height 154.9 cm (5' 1) 02/01/2014 10:28 AM CDT Body Mass Index 28.34 02/01/2014 10:28 AM CDT Plan of Treatment Health Maintenance Due Date Last Done Comments COLOGUARD (AGES 45-75) - COL ON CA SCREENING 1969 COLON MONITORING 1969 COLONOSCOPY - COLON CA SCREENING 1969 CT COLONOGRAPHY - COLON CA SCREENING 1969 Colorectal Cancer Screening 1969 FIT - COLON CA SCREENING 1969 FLEX SIG - COLON CA SCREENING 1969 LIPID TESTING 1969 MAMMOGRAM 1969 HIV SCREENING 1984 HEPATITIS C SCREENING 09/27/1987 DTAP/TDAP/TD VACCINES (1 - Tdap) 1988 HEPATITIS B VACCINE (1 of 3 - 19+ 3-dose series) 1988 PNEUMOCOCCAL VACCINE 50+ (1 of 1 - PCV) 10/02/2019 ZOSTER VACCINE (1 of 2) 10/02/2019 DEPRESSION SCREENING 04/15/2024 COVID-19 VACCINE (1 - 2023-2 5 season) 2024 INFLUENZA VACCINE (#1) 2024 HIB VACCINE Aged Out No longer eligi ble based on patient's age to complete this topic HPV VACCINE Aged Out No longer eligi ble based on patient's age to complete this topic MENINGOCOCCAL (Group B) VACC INE SHARED DECISION-MAKING Aged Out No longer eligibl e based on patient's age to complete this topic MENINGOCOCCAL GROUPS A/C/Y/W VACCINE Aged Out No longer eligible b ased on patient's age to complete this topic Insurance [facility] Care Teams Ticketing Clerk Relationship Specialty Start Date End Date Torsten Wiley MD [address] [place] [address] PCP - General Family Medicine 08/05/13
--- OUTSIDE RECORDS SUMMARY | 2025-01-25 13:24 | XMS_ITS | Encounter Summary ---
Author Organization [facility] Address [address] [place] [address] Care Team Providers Care Commissioning Agent Name Role Phone Torsten Wiley MD Primary Care Provider [phone] Encounter Details Date Type Department Care Team (Late st Contact Info) Description 12/18/2013 [facility] DEPT Mitesh Santiago MD [address] [place] [address] Social History Tobacco Use Types Packs/Day Years Used Date Smoking Tobacco: Every Day Alcohol Use Standard Drinks/Week Comments Yes 0 [...] file Not on file Not on file documented as of this encounter Plan of Treatment Not on file documented as of this encounter Visit Diagnoses Not on filedocumented in this encounter Care Teams Commissioning Agent Relationship Specialty Start Date End Date Torsten Wiley MD [address] [place] [address] PCP - General Family Medicine 08/05/13 documented as of this encounter
--- OUTSIDE RECORDS SUMMARY | 2025-01-25 13:24 | XMS_ITS | Clinical Summary ---
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 Gender Identity Not on file Sexual Orientation Not on file Plan of Treatment Health Maintenance Due Date Last Done Comments Hepatitis C Virus (HCV) Screening 1969 TdaP Immunization 1969 Hepatitis B Immunization (1 of 3 - 19+ 3-dose series) 1988 Pap Smear 1990 Cervical Cancer Screening (CCS) 10/02/1999 HPV/Cotest 10/02/1999 Cologuard 2014 Colonoscopy 2014 Colorectal Cancer Screening 2014 Immunochemical Fecal Occult Blood 2014 Pneumococcal Immunization (5 0+ years) (1 of 1 - PCV) 10/02/2019 Zoster Immunization (1 of 2) 10/02/2019 Influenza Immunization (#1) 2024 SARS-COV-2 Immunization (3 - 2024- season) 2024 10/14/2021, 09/16/2021 Respiratory Syncytial Virus (RSV) Immunization (Adult) (1 - 1-dose 75+ series) 2044 Human Papillomavirus (HPV) Immunization Aged Out No longer eligible b ased on patient's age to complete this topic Meningococcal Immunization (ACWY) Aged Out No longer eligible b ased on patient's age to complete this topic Rotavirus Immunization Aged Out No lo nger eligible based on patient's age to complete this topic Insurance [facility] Care Teams Slack Cooper Relationship Specialty Start Date End Date Torsten Wiley MD [address] [address] PCP - General Family Medicine 03/17/19
--- OUTSIDE RECORDS SUMMARY | 2025-01-25 13:24 | XMS_ITS | Encounter Summary ---
Author Organization [facility] Address [address] [place] [address] Care Team Providers Care Plastics Fitter Name Role Phone Torsten Wiley MD Primary Care Provider [phone] Encounter Details Date Type Department Care Team (Late st Contact Info) Description 07/23/2013 [facility] Mitesh Santiago MD [address] [place] [address] Social History Tobacco Use Types [...] on filedocumented in this encounter Care Teams Plastics Fitter Relationship Specialty Start Date End Date Torsten Wiley MD [address] [place] [id number] PCP - General Family Medicine 08/05/13 documented as of this encounter
--- NOTE | 2025-01-25 13:25 | ED.URI ---
HPI - URI/Sore Throat General Chief Complaint: Upper Respiratory Infection Stated Complaint: cold/congestion Source: patient, RN notes reviewed and old records reviewed Mode of arrival: ambulatory Limitations: no limitations History of Present Illness HPI Narrative: 54 year old female who presents to [facility] care with complaints of sinus congestion and drainage which started on with cough with expectoration of yellow mucous. Patient reports that she has had intermittent fevers. Patient has history of underlying lung disease and COPD she quit smoking 2 years ago. Patient reports that she has been taking Prednisone 5 mg daily that she does when she starts feeling like this and has been using her inhalers as prescribed. Tylenol and Mucinex.. Patient reports that she did have some sore throat initially but that has resolved, refuses strep screen. MD elicited complaint: fever, cough, sore throat, rhinorrhea, nasal congestion and sinus pain Pertinent past history: pneumonia, COPD and asthma Onset (ago): day(s) (5 days) Consistency: progressively worsening Severity: moderate Description of mucous: yellow Able to tolerate fluids by mouth: Yes Treatments prior to arrival: other (inhalers, Tylenol. Mucinex, Prednisone 5 mg) Related Data Allergies Allergy/AdvReac Type Severity Reaction Status Date / Time gabapentin Allergy Unknown Swelling Verified 01/25/25 12:33 pregabalin Allergy Unknown Swelling Verified 01/25/25 12:33 tetracycline Allergy Unknown Rash Verified 01/25/25 12:33 Review of Systems Review of Systems: CONSTITUTIONAL: Reports malaise, chills, sweats, or fever. EYES: Denies visual changes, redness, or discharge. ENT: Reports rhinorrhea, congestion, sinus pain,no otalgia and no present sore throat. CARDIOVASCULAR: Denies chest pain, palpitations, or edema. RESPIRATORY: Reports productive cough.? Denies acute dyspnea. GASTROINTESTINAL: Denies abdominal pain, nausea, vomiting, diarrhea SKIN: Denies rash or itching. MUSCULOSKELETAL: Denies myalgia. NEUROLOGIC: Denies headache. All systems reviewed & are unremarkable except as noted in HPI and below PMFSH Past Medical History Medical History (Updated 01/26/25 @ 09:54 by Leticia Espino NP) COPD (chronic obstructive pulmonary disease) Asthma Pneumonia Hot flashes Screening mammogram for high-risk patient Screen for colon cancer Wheezy bronchitis Elevated glucose NSAID long-term use Elevated blood-pressure reading without diagnosis of hypertension Restless leg syndrome Depression Tobacco abuse Anxiety Abnormal uterine bleeding Back pain Surgical History Surgical History History of abdominoplasty History of back surgery Hx of tubal ligation Hx of cholecystectomy Hx of appendectomy Hx of tonsillectomy Family History Family History Grandparent Family history of lymphoma Father , cancer Cancer Mother No problems noted. Social History Social History Smoking status: Former smoker Tobacco type: cigarettes Second hand tobacco smoke exposure: No Alcohol intake: current Drinks per week: 1 Substance use: current Substance use type: opiates Other substance usage details: for chronic back pain Do You Feel Safe in your Home?: Yes Lack of Transportation: No Lack of Food: Never True Current Housing: I Have Housing Concerned About Future Housing: No Difficulty Paying Gas/Electric Bills: No Difficulty Paying for Meds: No Currently Unemployed: No Education: Bachelor's Degree Difficulty w/ Childcare or Family Care: No Living arrangements: with family Occupation/Education: occupation 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 There is no relevant family history pertinent to the presenting complaint Exam Narrative: GENERAL: Ill-appearing, well-nourished, and in no acute distress. HEAD: Normocephalic EYES: PERRLA, conjunctivae clear ENT: Nares clear, turbinates edematous and erythematous, clear discharge, sinus pressure. Mucous membranes moist. TM pearly starr with dull light reflex bilaterally; no tragal tenderness. Oropharynx erythematous without lesions. Tonsils not present and throat without exudate, no drooling, no hoarseness, no trismus, uvula midline, post nasal drainage. NECK: Supple. No lymphadenopathy CHEST: Decreased to auscultation,, breath sounds equal. No wheezing, rhonchi, rales, or stridor. No respiratory distress, speaks in full sentences.productive cough of yellow mucous SAO2 98% on room air HEART: Regular rate and rhythm. No murmur heard. SKIN: Warm, dry, no rash. NEURO: Alert and oriented x3. PSYCH: Normal mood and affect Course Course Emergency Course: Patient is aware of diagnosis, understands and agrees to treatment plan.? Anticipatory guidance given.? Patient agrees to follow-up as directed and is aware of reasons to seek care at the emergency department. Portions of this record may have been created with voice recognition software Level of Care: Express Care Visit Vital Signs Vital signs: Vital Signs Temperature 36.4 C 01/25/25 12:28 Pulse Rate 80 01/25/25 12:28 Respiratory Rate 20 01/25/25 12:28 Blood Pressure 142/81 H 01/25/25 12:28 Pulse Oximetry 98 01/25/25 12:28 Oxygen Delivery Room Air 01/25/25 12:28 Temperature 36.4 C 01/25/25 12:28 Pulse Rate 80 01/25/25 12:28 Respiratory Rate 20 01/25/25 12:28 Blood Pressure 142/81 H 01/25/25 12:28 Pulse Oximetry 98 01/25/25 12:28 Oxygen Delivery Room Air 01/25/25 12:28 Reviewed MDM - URI/Sore Throat MDM Narrative Medical decision making narrative: Differential diagnosis considered: Gardiner virus, strep pharyngitis, allergic rhinitis, upper respiratory tract infection, sinusitis, rhinosinusitis, nasopharyngitis. viral pharyngitis, otitis media, otitis externa, pneumonia, bronchitis, viral cough syndrome, viral syndrome, and influenza.? Exam findings show no acute concerns or changes; patient is non-toxic appearing and is in no distress.? Patient is appropriate for outpatient treatment and follow-up. Differential Diagnosis Differential diagnosis: Likely upper respiratory infection, sinusitis, viral infection, influenza and other (COVID, exacerbation of asthma) Medical Records Attestation: I reviewed the patient's medical records. Lab Data Attestation: I reviewed the patient's lab results. Lab results narrative: COVID antigen negative, Influenza A&B negative Labs: Lab Results 01/25/25 01/25/25 Range/Units 12:34 13:18 POC Influenza A Ag Negative (Negative) POC Influenza B Ag Negative (Negative) POC SARS CoV-2 Ag Negative (Negative) reviewed Critical Care Time Critical Care Time Critical Care Time: No Discharge Plan Discharge Clinical Impression: Asthma exacerbation Qualifiers: Asthma severity: moderate Asthma persistence: persistent Qualified Code(s): J45.41 - Moderate persistent asthma with (acute) exacerbation Cough Qualifiers: Cough type: acute Qualified Code(s): R05.1 - Acute cough Patient Disposition: Home Condition: Stable Instructions: Antibiotic Form, Bronchospasm (ED), Acute Cough (ED) Additional Instructions: Increase fluids especially juices and water Agrg-ppo-obamvvi cough and cold medicine of your choice for your symptoms Cough tablets as directed for cough--do not bite, chew or suck on--swallow whole Continue your inhaler/nebulizer as directed Steroids as directed--take with food heat to the face 20-30 minutes 4-6 times a day for pain Salt water gargles, throat lozenges or throat sprays as desired Antibiotic as directed--finished the medication If your symptoms persist, change or worsen significantly before you can contact your personal physician then please, without delay, go to the emergency department for further evaluation. Follow-up with PCP in 7-10 days or sooner if needed Follow up with PCP soon in regards to your blood pressure which is elevated above threshold for referral. Blood pressure above 120/80 may indicate pre-hypertension. 142/81 Patient Language: [place] Prescriptions: New prednisone 20 mg tablet 40 mg PO DAILY 5 Days Qty: 10 0RF azithromycin 250 mg tablet See Rx Instructions .ROUTE .COMPLEX Qty: 6 0RF Rx Instructions: For 250 mg dose pack: take 500 mg today (day 1), then 250 mg for 4 days (days 2-5) benzonatate 200 mg capsule 200 mg PO TID Qty: 20 0RF No Action fluticasone propion-salmeterol [Advair Diskus] 250-50 mcg/dose blister with device 1 inh inhalation BID Qty: 60 2RF albuterol sulfate 90 mcg/actuation HFA aerosol inhaler See Rx Instructions .ROUTE .COMPLEX Qty: 8.5 5RF Dose Instruction: TAKE 1 PUFF BY MOUTH EVERY SIX (6) HOURS NEEDED FOR SHORTNESS OF BREATH OR WHEEZING Rx Instructions: TAKE 1 PUFF BY MOUTH EVERY SIX (6) HOURS NEEDED FOR SHORTNESS OF BREATH OR WHEEZING trazodone 150 mg tablet See Rx Instructions .ROUTE .COMPLEX Qty: 90 1RF Dose Instruction: TAKE ONE (1) TABLET ORALLY EVERY DAY AT BEDTIME Rx Instructions: TAKE ONE (1) TABLET ORALLY EVERY DAY AT BEDTIME tizanidine 4 mg tablet 4 mg PO TID PRN (Reason: muscle spasticity) Qty: 90 2RF morphine 30 mg tablet 15 mg PO Q6H Qty: 60 0RF Follow-up/Referrals: Torsten Wiley MD [Primary Care Provider, [facility] [place]] Time of Disposition: 13:42 Quality [place] Coma Scale Eyes: Open Verbal: Oriented and Alert Motor: Follows Commands Otilio Coma Total Score: 15
== END 2025-01-25 13:42 | disposition home or self-care (01) ==
PROVIDERS: Emergency Provider Registered Nurse; PCP Family Medicine
DX: J45.901 Unspecified asthma with (acute) exacerbation (principal); R05.1 Acute cough; Z20.822 Contact with and (suspected) exposure to COVID-19; J44.9 Chronic obstructive pulmonary disease, unspecified; G25.81 Restless legs syndrome; F32.A Depression, unspecified; Z87.891 Personal history of nicotine dependence
CPT/HCPCS: 87426; 87804; 99213; G0463